=== PATIENT | male | born 1965 | race Caucasian/White ===

== ENCOUNTER 2017-09-07 10:01 | Day surgery (SDC) | payer OTHER ==
[~2017-09-07 10:01] MED LIST: LIDOCAINE 2% MDV 20 ML VIAL As Ordered; PROPOFOL 200 MG/20 ML VIAL As Ordered
[2017-09-07] MEDS: NS 1,000 ML IV ×2 (10:15)
[2017-09-07] MEDS ORDERED: PROPOFOL 200 MG/20 ML VIAL As Ordered ×2 (11:30)
== END 2017-09-07 12:27 | disposition home or self-care (01) ==
LOC: M OPP 10:01
DX: Z12.11 Encounter for screening for malignant neoplasm of colon (principal); K64.2 Third degree hemorrhoids; R10.13 Epigastric pain; K21.9 Gastro-esophageal reflux disease without esophagitis; I10 Essential (primary) hypertension; F41.9 Anxiety disorder, unspecified; R51 Headache; R35.0 Frequency of micturition; Z79.899 Other long term (current) drug therapy; F17.210 Nicotine dependence, cigarettes, uncomplicated
CPT/HCPCS: 45378; G0121

== ENCOUNTER 2019-10-13 16:21 | Emergency (ER) | payer OTHER ==
[~2019-10-13] VITALS: Ht 185.4 cm; Wt 75.0 kg
[~2019-10-13 16:21] MED LIST changes: +AMIT10TA PO; +AMLO10TA5 PO; -LIDOCAINE 2% MDV 20 ML VIAL As Ordered; +LISI10TA4 PO; +MULTTAB22 PO; +OMEP1CAP73 PO; -PROPOFOL 200 MG/20 ML VIAL As Ordered
[2019-10-13] MEDS ORDERED: NAPR-885 PO (16:27)
[2019-10-13] MEDS ORDERED: NS 500 ML IV ONE (17:30)
[2019-10-13] MEDS ORDERED: MORPHINE 4 MG/ML 1ML VIAL/SYRINGE (J2270) IV ONE ×4 (17:30→22:15)
[2019-10-13] MEDS ORDERED: ONDANSETRON 4MG/2ML VIAL (J2405) IV ONE (17:30)
--- NOTE | 2019-10-13 17:56 | REP ---
Clinical: Radiculopathy and right sided sciatica. Technique: AP, lateral, bilateral oblique and coned-down views of the lumbosacral spine. Findings: Alignment and lordosis maintained. No acute fracture / compression injury or subluxation. Endplate sclerosis with minimal disc space narrowing and hypertrophic facet changes noted at L4-5 and L5-S1. Impression: Mild/early moderate degenerative changes at L4-5 and L5-S1. Electronically Signed by Colton Ortega MD 10/13/2019 05:47 P
[2019-10-13 17:59] LABS: BASO % 0.2 % (0.0-1.0); EOS # 0.1 10^3/uL (0.0-0.5); EOS % 0.5 % (0.0-3.0); HEMATOCRIT 44.2 % (42.0-52.0); HEMOGLOBIN 14.9 g/dl (13.5-17.5); LYMPH # 1.8 10^3/uL (1.5-5.0); LYMPH % 13.1 % (24.0-44.0); MEAN CORPUSCULAR HEMOGLOBIN 30.2 pg (27.0-33.0); MEAN CORPUSCULAR HGB CONC 33.7 g/dl (32.0-36.5); MEAN CORPUSCULAR VOLUME 89.5 fl (80.0-96.0); MONO # 0.9 10^3/uL (0.0-0.8); MONO % 6.4 % (0.0-5.0); NEUTROPHILS # 10.8 10^3/uL (1.5-8.5); NEUTROPHILS % 79.6 % (36.0-66.0); PLATELET COUNT, AUTOMATED 310 10^3/uL (150-450); RED BLOOD COUNT 4.94 10^6/uL (4.30-6.10); WHITE BLOOD COUNT 13.5 10^3/uL (4.0-10.0)
[2019-10-13 18:09] LABS: INR 0.96; PROTHROMBIN TIME 12.5 SECONDS (11.8-14.0)
[2019-10-13 18:24] LABS: ALBUMIN 4.4 GM/DL (3.2-5.2); BILIRUBIN,DIRECT 0.1 MG/DL (0.0-0.2); BILIRUBIN,TOTAL 0.5 MG/DL (0.2-1.0); TOTAL PROTEIN 7.5 GM/DL (6.4-8.2)
[2019-10-14] MEDS ORDERED: KETOROLAC 30 MG/ML VIAL (J1885) IV ONE
[2019-10-14] MEDS ORDERED: traMADol 50 MG TAB (BULK 4 TAB ED) PO ONE (00:45)
[2019-10-14] MEDS ORDERED: TRAM-533 PO (00:50)
[2019-10-14] MEDS ORDERED: PRED20TA PO (00:50)
[2019-10-14 00:57] VITALS: BP 172/82
[2019-10-14] MEDS ORDERED: dexameTHASONE 20 MG/5 ML VIAL (J1100) IV ONE (01:00)
--- NOTE | 2019-10-14 19:30 | ED PDOC ---
Post-Departure Follow-Up dr yang faxed formal report of mri ls spine for fu Dwight Dorantes MD Oct 14, 2019 19:30
--- NOTE | 2019-10-15 08:58 | REPVR ---
PROCEDURE INFORMATION: Exam: MR Lumbar Spine Without Contrast. Exam date and time: 10/13/2019 8:53 PM Age: 54 years old Clinical indication: Pain; Lumbago with sciatica; Right; Additional info: Back pain right side, numb right leg, decreased reflexes TECHNIQUE: Imaging protocol: Multiplanar magnetic resonance images of the lumbar spine without intravenous contrast. COMPARISON: CR Spine. Lumbosacral, complete 10/13/2019 5:21 PM FINDINGS: Vertebrae: Unremarkable. Spinal cord: Normal signal. No cord compression. L1-L2: No significant disc disease. No significant spinal canal stenosis. No neural foraminal stenosis. L2-L3: There is mild disc bulging. There is a small left paracentral disc protrusion. There is moderate left-sided neuroforaminal narrowing. There is mild right-sided neuroforaminal narrowing. There is facet arthropathy and ligamentum flavum hypertrophy. There is mild spinal canal stenosis. L3-L4: There is moderate disc bulging. Disc bulging extends into both neural foramen causing bilateral neuroforaminal narrowing. There is a small right paracentral disc protrusion. There is moderate bilateral neural foraminal narrowing, right worse than left. There is facet arthropathy and ligamentum flavum hypertrophy. There is moderate spinal canal stenosis. L4-L5: There is minimal retrolisthesis at L4/5. There is degenerative disc disease including disc space narrowing and dessication. There is a moderate disc bulge with a small superimposed central/right paracentral disc herniation. Disc bulging extends into both neural foramen causing moderate bilateral neuroforaminal narrowing, right worse than left. There is facet arthropathy and ligamentum flavum hypertrophy. There is mild/moderate spinal canal stenosis. L5-S1: There is grade 1 anterior spondylolisthesis at L5/S1. There is degenerative disc disease including disc space narrowing and dessication. There is mild disc bulging. There is moderate bilateral neural foraminal narrowing. There is facet arthropathy and ligamentum flavum hypertrophy. There is mild spinal canal stenosis. Soft tissues: Unremarkable. Other findings: There is congenital spinal canal stenosis which is exacerbated by multilevel degenerative changes. IMPRESSION: 1. There is congenital spinal canal stenosis which is exacerbated by multilevel degenerative changes. 2. Multilevel degenerative changes causing variable degrees of spinal canal and neuroforaminal narrowing as described above. Electronically signed by: Tang Fox On 10/15/2019 08:58:33 AM
--- NOTE | 2019-10-18 19:29 | ED PDOC ---
Post-Departure Follow-Up stephanie fletcher and trey faxed formal report of mri ls spine for fu Dwight Bermudez MD Oct 18, 2019 19:29
== END 2019-10-14 01:09 | disposition home or self-care (01) ==
LOC: M ED 16:21
DX: S39.92XA Unspecified injury of lower back, initial encounter (principal); X50.0XXA Overexertion from strenuous movement or load, initial encounter; Y99.0 Civilian activity done for income or pay; M47.816 Spondylosis without myelopathy or radiculopathy, lumbar region; M51.36 Other intervertebral disc degeneration, lumbar region; K59.00 Constipation, unspecified; I10 Essential (primary) hypertension; E78.5 Hyperlipidemia, unspecified; F41.9 Anxiety disorder, unspecified; F17.210 Nicotine dependence, cigarettes, uncomplicated; Z79.84 Long term (current) use of oral hypoglycemic drugs; Z79.899 Other long term (current) drug therapy
CPT/HCPCS: 36415; 72110; 72148; 80047; 80076; 81001; 83605; 83690; 85025; 85610; 85730; 87040; 93041; 96374; 96375; 96376; 99284; J1100; J1885; J2270; J2405

== ENCOUNTER → 2019-11-23 | Outpatient (REF) | payer OTHER ==
[~2019-11-23] MED LIST changes: +NAPR-885 PO; +PRED20TA PO; +TRAM-533 PO
[2019-11-23 12:57] LABS: PLATELET COUNT, AUTOMATED 333 10^3/uL (150-450)
[2019-11-23 13:07] LABS: INR 0.93; PROTHROMBIN TIME 12.2 SECONDS (11.8-14.0)
[2019-11-23 13:08] LABS: PARTIAL THROMBOPLASTIN TIME 33.3 SECONDS (25.0-38.4)
[2019-11-23 13:17] LABS: COLLAGEN EPINEPHRINE 151 SECONDS (74-162)
== END ==
LOC: M LABDRAW1 09:21
PROVIDERS: ATTEND Physician Assistant
DX: Z01.812 Encounter for preprocedural laboratory examination (principal); M47.817 Spondylosis without myelopathy or radiculopathy, lumbosacral region; M41.26 Other idiopathic scoliosis, lumbar region

== ENCOUNTER → 2020-02-22 | Outpatient (CLI) | payer OTHER | LOC: M LABSMTC 11:04 | PROVIDERS: ATTEND Physical Medicine & Rehabilitation | DX: Z11.59 Encounter for screening for other viral diseases (principal) ==

== ENCOUNTER → 2020-06-08 | Outpatient (CLI) | payer OTHER ==
[~2020-06-08] MED LIST changes: -AMLO10TA5 PO; +AMLO1TAB25 PO
== END ==
LOC: M LABSMTC 11:21
PROVIDERS: ATTEND Physical Medicine & Rehabilitation
DX: Z01.812 Encounter for preprocedural laboratory examination (principal); Z20.828 Contact with and (suspected) exposure to other viral communicable diseases

== ENCOUNTER → 2020-06-27 | Outpatient (CLI) | payer OTHER ==
[2020-06-27 17:21] LABS: PLATELET COUNT, AUTOMATED 361 10^3/uL (150-450)
[2020-06-27 17:26] LABS: INR 0.8; PROTHROMBIN TIME 11.2 SECONDS (12.5-14.3)
[2020-06-27 17:27] LABS: PARTIAL THROMBOPLASTIN TIME 31.5 SECONDS (24.2-38.5)
[2020-06-27 17:38] LABS: COLLAGEN EPINEPHRINE 169 SECONDS (74-162)
[2020-06-27 18:01] LABS: COLLAGEN ADP 84 SECONDS (56-103)
== END ==
LOC: M PLALAB 15:04
PROVIDERS: ATTEND Physician Assistant
DX: M47.817 Spondylosis without myelopathy or radiculopathy, lumbosacral region (principal)

== ENCOUNTER → 2020-08-26 | Outpatient (CLI) | payer OTHER ==
[2020-08-26 11:52] LABS: COLLAGEN EPINEPHRINE 153 SECONDS (74-162)
== END ==
LOC: M PLALAB 10:29
PROVIDERS: ATTEND Physical Medicine & Rehabilitation
DX: Z01.812 Encounter for preprocedural laboratory examination (principal)

== ENCOUNTER → 2020-08-27 | Outpatient (CLI) | payer OTHER | LOC: M LABSMTC 11:18 | PROVIDERS: ATTEND Physical Medicine & Rehabilitation | DX: Z01.812 Encounter for preprocedural laboratory examination (principal); Z20.828 Contact with and (suspected) exposure to other viral communicable diseases ==

== ENCOUNTER 2020-12-02 12:23 | Emergency (ER) | payer OTHER ==
[~2020-12-02] VITALS: Ht 182.9 cm; Wt 94.2 kg
[~2020-12-02 12:23] MED LIST changes: -AMIT10TA PO; +AMIT10TA7 PO; +LISI10TA22 PO; -LISI10TA4 PO
[2020-12-02 12:29] VITALS: BP 131/83
[2020-12-02] MEDS ORDERED: TIZA4TAB4 (12:33)
[2020-12-02] MEDS ORDERED: GABA600T4 (12:33)
[2020-12-02] MEDS ORDERED: BOOSTRIX/ADACEL VACCINE (DIPHTH/PERTUSS/ACELL/TETANUS) 0.5ML SYR IM ONE (13:10)
[2020-12-02] MEDS ORDERED: AUGMENTIN 875 MG TAB PO ONE (13:10)
[2020-12-02] MEDS ORDERED: AUGM875T28 PO (13:13)
== END 2020-12-02 13:30 | disposition home or self-care (01) ==
LOC: M ED 12:23
DX: S41.132A Puncture wound without foreign body of left upper arm, initial encounter (principal); W54.0XXA Bitten by dog, initial encounter; Y92.410 Unspecified street and highway as the place of occurrence of the external cause; Y93.9 Activity, unspecified; Y99.9 Unspecified external cause status; F17.200 Nicotine dependence, unspecified, uncomplicated; Z79.899 Other long term (current) drug therapy

== ENCOUNTER → 2021-12-04 | Outpatient (CLI) | payer OTHER ==
[~2021-12-04] MED LIST changes: +AUGM875T28 PO; +GABA600T4; +TIZA10TA
== END ==
LOC: M RAD 16:10
PROVIDERS: ATTEND Family Medicine
DX: R22.41 Localized swelling, mass and lump, right lower limb (principal); N40.0 Benign prostatic hyperplasia without lower urinary tract symptoms; I70.201 Unspecified atherosclerosis of native arteries of extremities, right leg

== ENCOUNTER 2023-01-14 06:45 | Day surgery (SDC) | payer OTHER ==
[~2023-01-14] VITALS: Ht 182.9 cm; Wt 98.0 kg
[~2023-01-14 06:45] MED LIST changes: +ACET650T61 PO; +EZET10TA21 PO; -GABA600T4; +GABA600T4 PO; +HYDR-3490 PO; -TIZA10TA; +TIZA10TA PO; +VARE1TAB2 PO; +VITMTA PO
[2023-01-14] MEDS ORDERED: LR 1,000 ML IV SCH ×2 (07:25→09:50)
[2023-01-14] MEDS ORDERED: ceFAZolin SOD 2 GM in IV 1 EA IV ONE (07:40)
[2023-01-14] MEDS ORDERED: LIDOCAINE 1% SDV 30ML VIAL As Ordered ONE (08:01)
[2023-01-14] MEDS ORDERED: BUPIVACAINE HCL 0.25% 30ML VIAL As Ordered ONE (08:02)
[2023-01-14] MEDS ORDERED: ROCURONIUM BROMIDE 50MG/5ML VIAL As Ordered ONE ×2 (08:16→09:14)
[2023-01-14] MEDS ORDERED: SUGAMMADEX SODIUM 500 MG/5 ML VIAL (BRIDION) As Ordered ONE ×2 (08:16→09:14)
[2023-01-14] MEDS ORDERED: ONDANSETRON 4MG 2ML VIAL As Ordered ONE (09:14)
[2023-01-14] MEDS ORDERED: propofoL 200 MG/20 ML VIAL As Ordered ONE (09:14)
[2023-01-14] MEDS ORDERED: KETOROLAC 60MG 2ML VIAL As Ordered ONE (09:14)
[2023-01-14] MEDS ORDERED: LIDOCAINE 2% 100MG/5ML SDV (FOR ANES.) As Ordered ONE (09:14)
[2023-01-14] MEDS ORDERED: MIDAZOLAM INJ 2MG/2ML VIAL As Ordered ONE (09:15)
[2023-01-14] MEDS ORDERED: ACETAMINOPHEN 1000MG 100ML IV BAG As Ordered ONE (09:15)
[2023-01-14] MEDS ORDERED: fentaNYL 100 MCG/2 ML INJECTION As Ordered ONE (09:15)
[2023-01-14] MEDS ORDERED: GLYCOPYRROLATE INJ 0.2 MG/ML 2 ML VIAL As Ordered ONE (09:38)
[2023-01-14] MEDS ORDERED: fentaNYL 100 MCG/2 ML INJECTION IV PRN (09:50)
[2023-01-14] MEDS ORDERED: ONDANSETRON 4MG 2ML VIAL IV PRN (09:50)
[2023-01-14] MEDS ORDERED: OXYC1TAB23 PO (10:02)
[2023-01-14] MEDS: oxyCODONE 5MG TAB PO PRN ×2 (10:25→11:06)
[2023-01-14] MEDS: HYDROMORPHONE HCL 0.5 MG/ 0.5 ML SYRINGE IV PRN ×2 (10:26→10:32)
[2023-01-14] MEDS ORDERED: NORCO, ANEXSIA 5/325MG TABLET (HYDROcodone/ACETAMINOPHEN) PO PRN (11:00)
[2023-01-14 12:15] VITALS: BP 142/82
[2023-01-14] MEDS ORDERED: KETOROLAC 30 MG/ML 1ML VIAL IV SCH (16:00)
== END 2023-01-14 12:18 | disposition home or self-care (01) ==
LOC: M SDC 06:45
PROVIDERS: ATTEND Surgery
DX: D17.1 Benign lipomatous neoplasm of skin and subcutaneous tissue of trunk (principal); I10 Essential (primary) hypertension; E78.5 Hyperlipidemia, unspecified; K21.9 Gastro-esophageal reflux disease without esophagitis; G47.33 Obstructive sleep apnea (adult) (pediatric); Z79.899 Other long term (current) drug therapy; F41.9 Anxiety disorder, unspecified; F17.210 Nicotine dependence, cigarettes, uncomplicated; F12.10 Cannabis abuse, uncomplicated
CPT/HCPCS: 11406; 88304; J0131; J0690; J1100; J1170; J1885; J2250; J2405; J3010

== ENCOUNTER → 2023-02-02 | Outpatient (RCR) | payer OTHER ==
[~2023-02-02] MED LIST changes: +OXYC1TAB23 PO
== END ==
LOC: M PT 11:20
PROVIDERS: ATTEND Internal Medicine Hematology
DX: M54.50 Low back pain, unspecified (principal)

== ENCOUNTER 2023-02-28 11:26 | Outpatient (RCR) | payer OTHER | END 2023-03-04 | LOC: M PT 11:26 | PROVIDERS: ATTEND Internal Medicine Hematology | DX: M54.50 Low back pain, unspecified (principal) ==

== ENCOUNTER → 2023-03-02 | Outpatient (CLI) | payer OTHER ==
[2023-03-02 16:54] LABS: CREATININE, URINE 65.4 MG/DL; MALB URINE SIEMENS < 3.0 MG/L; MAU/CREAT RATIO 4.5 MCG/MG (0.0-30.0)
[2023-03-02 16:56] LABS: C REACTIVE PROTEIN QUANTITATIV < 0.40 MG/DL (<1.0)
[2023-03-02 16:57] LABS: ALBUMIN 4.1 G/DL (3.2-5.2); ALKALINE PHOSPHATASE 83 U/L (46-116); ALT/SGPT 14 U/L (7.0-40); AST/SGOT 23 U/L (<34); BILIRUBIN,TOTAL 0.5 MG/DL (0.3-1.2); BLOOD UREA NITROGEN 15 MG/DL (9-23); CALCIUM LEVEL 9.3 MG/DL (8.5-10.1); CARBON DIOXIDE LEVEL 29 MMOL/L (20-31); CHLORIDE LEVEL 106 MMOL/L (98-107); CHOLESTEROL LEVEL 210 MG/DL (<200); CHOLESTEROL RISK RATIO 3.58 (<5); CREATININE FOR GFR 0.84 MG/DL (0.70-1.30); GLOMERULAR FILTRATION RATE > 60.0 (>56); GLUCOSE, FASTING 93 MG/DL (60-100); HDL CHOLESTEROL 58.5 MG/DL (>40); LDL CHOLESTEROL 126.7 MG/DL (<100); NON-HDL-C 151.5 MG/DL; POTASSIUM SERUM 4.4 MMOL/L (3.5-5.1); SODIUM LEVEL 140 MMOL/L (136-145); TOTAL PROTEIN 7.1 G/DL (5.7-8.2); TRIGLYCERIDES LEVEL 124 MG/DL (<150)
[2023-03-02 16:58] LABS: FREE T4 1.29 NG/DL (0.89-1.76); THYROID STIMULATING HORMONE 0.334 uIU/ML (0.55-4.78); VITAMIN B12 LEVEL 396 PG/ML (211-911)
[2023-03-02 16:59] LABS: TOTAL 25(OH) VITAMIN D 26.3 NG/ML (20.0-100.0)
[2023-03-02 17:04] LABS: HEMOGLOBIN 15.8 g/dl (13.5-17.5); MEAN CORPUSCULAR HEMOGLOBIN 30.2 pg (27.0-33.0); MEAN CORPUSCULAR HGB CONC 34.3 g/dl (32.0-36.5); MEAN CORPUSCULAR VOLUME 87.8 fl (80.0-96.0); PLATELET COUNT, AUTOMATED 346 10^3/uL (150-450); RED BLOOD COUNT 5.24 10^6/uL (4.30-6.10); WHITE BLOOD COUNT 7.6 10^3/uL (4.0-10.0)
[2023-03-02 17:39] LABS: HEMOGLOBIN A1c 5.2 % (4.0-6.0)
== END ==
LOC: M PLALAB 12:17
PROVIDERS: ATTEND Internal Medicine Hematology
DX: I10 Essential (primary) hypertension (principal); Z12.5 Encounter for screening for malignant neoplasm of prostate; Z79.899 Other long term (current) drug therapy

== ENCOUNTER 2023-05-17 13:06 | Emergency (ER) | payer OTHER ==
[~2023-05-17] VITALS: Ht 185.4 cm; Wt 95.1 kg
[2023-05-17 14:23] LABS: RSV AMPLIFICATION NEGATIVE (NEGATIVE)
[2023-05-17 15:15] VITALS: O2SAT 98
[2023-05-17] MEDS ORDERED: VENTAER INH (15:34)
[2023-05-17] MEDS ORDERED: MUCI600T31 PO (15:34)
[2023-05-17] MEDS ORDERED: BENZ200C70 PO (15:34)
[2023-05-17 15:50] VITALS: BP 182/94; TEMP 98.2; O2SAT 99
== END 2023-05-17 15:57 | disposition home or self-care (01) ==
LOC: M ED 13:06
DX: U07.1 COVID-19 (principal); F41.9 Anxiety disorder, unspecified; K21.9 Gastro-esophageal reflux disease without esophagitis; I10 Essential (primary) hypertension; G47.33 Obstructive sleep apnea (adult) (pediatric); F17.200 Nicotine dependence, unspecified, uncomplicated; Z79.1 Long term (current) use of non-steroidal anti-inflammatories (NSAID); Z79.891 Long term (current) use of opiate analgesic; Z79.810 Long term (current) use of selective estrogen receptor modulators (SERMs); Z79.811 Long term (current) use of aromatase inhibitors; Z79.899 Other long term (current) drug therapy

== ENCOUNTER → 2023-08-24 | Outpatient (CLI) | payer OTHER ==
[~2023-08-24] MED LIST changes: +BENZ200C70 PO; +MUCI600T31 PO; +VENTAER INH
[2023-08-24 16:02] LABS: HEMATOCRIT 44.9 % (42.0-52.0); HEMOGLOBIN 15.2 g/dl (13.5-17.5); MEAN CORPUSCULAR HEMOGLOBIN 29.4 pg (27.0-33.0); MEAN CORPUSCULAR HGB CONC 33.9 g/dl (32.0-36.5); MEAN CORPUSCULAR VOLUME 86.8 fl (80.0-96.0); PLATELET COUNT, AUTOMATED 329 10^3/uL (150-450); RED BLOOD COUNT 5.17 10^6/uL (4.30-6.10); WHITE BLOOD COUNT 9.9 10^3/uL (4.0-10.0)
[2023-08-24 16:27] LABS: PSA SCREENING 0.82 NG/ML (< 4.00)
[2023-08-24 16:29] LABS: C REACTIVE PROTEIN QUANTITATIV < 0.40 MG/DL (<1.0)
[2023-08-24 16:31] LABS: ALBUMIN 4.1 G/DL (3.2-5.2); ALKALINE PHOSPHATASE 92 U/L (46-116); ALT/SGPT 51 U/L (7.0-40); AST/SGOT 29 U/L (<34); BILIRUBIN,TOTAL 0.5 MG/DL (0.3-1.2); BLOOD UREA NITROGEN 16 MG/DL (9-23); CALCIUM LEVEL 9.9 MG/DL (8.5-10.1); CARBON DIOXIDE LEVEL 26 MMOL/L (20-31); CHLORIDE LEVEL 107 MMOL/L (98-107); CHOLESTEROL LEVEL 154 MG/DL (<200); CHOLESTEROL RISK RATIO 2.72 (<5); CREATININE FOR GFR 0.85 MG/DL (0.70-1.30); GLOMERULAR FILTRATION RATE > 60.0 (>56); GLUCOSE, FASTING 75 MG/DL (60-100); HDL CHOLESTEROL 56.6 MG/DL (>40); LDL CHOLESTEROL 79.8 MG/DL (<100); NON-HDL-C 97.4 MG/DL; POTASSIUM SERUM 4.2 MMOL/L (3.5-5.1); SODIUM LEVEL 138 MMOL/L (136-145); THYROID STIMULATING HORMONE 0.473 uIU/ML (0.55-4.78); TOTAL PROTEIN 7.3 G/DL (5.7-8.2); TRIGLYCERIDES LEVEL 88 MG/DL (<150)
[2023-08-24 16:33] LABS: VITAMIN B12 LEVEL 521 PG/ML (211-911)
[2023-08-24 16:52] LABS: HEMOGLOBIN A1c 5.3 % (4.0-6.0)
== END ==
LOC: M PLALAB 13:57
PROVIDERS: ATTEND Internal Medicine Hematology
DX: M85.851 Other specified disorders of bone density and structure, right thigh (principal); M16.11 Unilateral primary osteoarthritis, right hip; I10 Essential (primary) hypertension; R79.89 Other specified abnormal findings of blood chemistry; Z12.5 Encounter for screening for malignant neoplasm of prostate
CPT/HCPCS: 36415; 73502; 80053; 80061; 82306; 82607; 83036; 84443; 85027; 86140; G0103

== ENCOUNTER → 2023-10-20 | Outpatient (CLI) | payer OTHER | LOC: M PLAIMG 10:58 | PROVIDERS: ATTEND Physician Assistant | DX: M47.816 Spondylosis without myelopathy or radiculopathy, lumbar region (principal); M48.061 Spinal stenosis, lumbar region without neurogenic claudication; M54.41 Lumbago with sciatica, right side ==

== ENCOUNTER → 2023-10-26 | Outpatient (CLI) | payer OTHER | LOC: M PLAIMG 11:21 | PROVIDERS: ATTEND Student in an Organized Health Care Education/Training Program | DX: R06.02 Shortness of breath (principal) ==

== ENCOUNTER → 2023-10-28 | Outpatient (CLI) | payer OTHER ==
[~2023-10-28] MED LIST changes: +ISOVUE-300 61% 100ML VIAL As Ordered ONE; +LIDOCAINE 1% MDV 20ML VIAL As Ordered ONE; +methylPREDNISolone SUSP 40MG/ML 1ML VIAL (DEPO MEDROL) As Ordered ONE
== END ==
LOC: M RAD 14:25
PROVIDERS: ATTEND Physician Assistant
DX: M16.11 Unilateral primary osteoarthritis, right hip (principal); M25.551 Pain in right hip
CPT/HCPCS: 20610; 77002; J0665; J1030; Q9967

== ENCOUNTER → 2023-12-23 | Outpatient (CLI) | payer OTHER ==
[~2023-12-23] MED LIST changes: -ISOVUE-300 61% 100ML VIAL As Ordered ONE; -LIDOCAINE 1% MDV 20ML VIAL As Ordered ONE; -methylPREDNISolone SUSP 40MG/ML 1ML VIAL (DEPO MEDROL) As Ordered ONE
== END ==
LOC: M RAD 15:37
PROVIDERS: ATTEND Nurse Practitioner Family
DX: Z12.2 Encounter for screening for malignant neoplasm of respiratory organs (principal); F17.210 Nicotine dependence, cigarettes, uncomplicated

== ENCOUNTER 2023-12-30 00:25 | Emergency (ER) | payer OTHER ==
[~2023-12-30] VITALS: Ht 185.4 cm; Wt 96.8 kg
[2023-12-30 00:26] VITALS: BP 132/72; TEMP 97.3; O2SAT 100
== END 2023-12-30 02:15 | disposition home or self-care (01) ==
LOC: M ED 00:25
DX: T83.091A Other mechanical complication of indwelling urethral catheter, initial encounter (principal); I10 Essential (primary) hypertension; R33.9 Retention of urine, unspecified; M51.36 Other intervertebral disc degeneration, lumbar region; F17.200 Nicotine dependence, unspecified, uncomplicated; F12.10 Cannabis abuse, uncomplicated; Z79.52 Long term (current) use of systemic steroids; Z79.811 Long term (current) use of aromatase inhibitors; Z79.891 Long term (current) use of opiate analgesic; Z79.899 Other long term (current) drug therapy

== ENCOUNTER → 2024-01-03 | Outpatient (CLI) | payer OTHER ==
[~2024-01-03] MED LIST changes: +ATOR80TA59 PO; +DULO1CAP5 PO; +FINA5TAB2 PO; +FLOM0.4C39 PO; +LISI20TA33 PO; +LORA-622 PO; +NORT10CA2 PO; +OXYB5TAB14 PO
== END ==
LOC: M PAIN 13:00
PROVIDERS: ATTEND Nurse Practitioner Family
DX: M51.16 Intervertebral disc disorders with radiculopathy, lumbar region (principal); G89.29 Other chronic pain; I10 Essential (primary) hypertension; E78.00 Pure hypercholesterolemia, unspecified; F17.210 Nicotine dependence, cigarettes, uncomplicated; Z79.899 Other long term (current) drug therapy

== ENCOUNTER 2024-01-05 00:56 | Emergency (ER) | payer OTHER ==
[~2024-01-05] VITALS: Ht 188 cm; Wt 99.7 kg
[~2024-01-05 00:56] MED LIST changes: -ATOR80TA59 PO; -DULO1CAP5 PO; -FINA5TAB2 PO; -FLOM0.4C39 PO; -LISI20TA33 PO; -LORA-622 PO; -NORT10CA2 PO; -OXYB5TAB14 PO
[2024-01-05 01:46] LABS: HEMATOCRIT 38.9 % (42.0-52.0); HEMOGLOBIN 13.6 g/dl (13.5-17.5); MEAN CORPUSCULAR HEMOGLOBIN 30.3 pg (27.0-33.0); MEAN CORPUSCULAR VOLUME 86.6 fl (80.0-96.0); PLATELET COUNT, AUTOMATED 313 10^3/uL (150-450); RED BLOOD COUNT 4.49 10^6/uL (4.30-6.10); WHITE BLOOD COUNT 16.5 10^3/uL (4.0-10.0)
[2024-01-05 02:25] LABS: ALBUMIN 3.5 G/DL (3.2-5.2); ALKALINE PHOSPHATASE 91 U/L (46-116); ALT/SGPT 35 U/L (7.0-40); AST/SGOT 27 U/L (<34); BILIRUBIN,TOTAL 0.3 MG/DL (0.3-1.2); BLOOD UREA NITROGEN 23 MG/DL (9-23); CALCIUM LEVEL 9.1 MG/DL (8.5-10.1); CARBON DIOXIDE LEVEL 28 MMOL/L (20-31); CHLORIDE LEVEL 101 MMOL/L (98-107); CREATININE FOR GFR 1.25 MG/DL (0.70-1.30); GLOMERULAR FILTRATION RATE > 60.0 (>56); GLUCOSE, FASTING 143 MG/DL (60-100); POTASSIUM SERUM 3.6 MMOL/L (3.5-5.1); SODIUM LEVEL 136 MMOL/L (136-145); TOTAL PROTEIN 6.2 G/DL (5.7-8.2)
[2024-01-05] MEDS ORDERED: ISOVUE-370 76% 100ML VIAL As Ordered ONE (02:32)
[2024-01-05] MEDS ORDERED: FLOM0.4C39 PO (03:28)
[2024-01-05] MEDS ORDERED: NORT10CA2 PO (03:28)
[2024-01-05] MEDS ORDERED: DULO1CAP5 PO (03:28)
[2024-01-05] MEDS ORDERED: ATOR80TA59 PO (03:28)
[2024-01-05] MEDS ORDERED: FINA5TAB2 PO (03:28)
[2024-01-05] MEDS ORDERED: OXYB5TAB14 PO (03:28)
[2024-01-05] MEDS ORDERED: LORA-622 PO (03:28)
[2024-01-05] MEDS ORDERED: LISI20TA33 PO (03:28)
[2024-01-05] MEDS: NS 1,000 ML IV ONE (04:36)
[2024-01-05 06:25] LABS: BASO # 0.1 10^3/uL (0.0-0.2); BASO % 0.3 % (0.0-1.0); EOS # 0.2 10^3/uL (0.0-0.5); EOS % 1.3 % (0.0-3.0); LYMPH # 1.7 10^3/uL (1.5-5.0); LYMPH % 10.4 % (24.0-44.0); MONO # 0.8 10^3/uL (0.0-0.8); MONO % 5.1 % (2.0-8.0); NEUTROPHILS # 13.4 10^3/uL (1.5-8.5); NEUTROPHILS % 82.5 % (36.0-66.0)
[2024-01-05] MEDS: ACETAMINOPHEN TAB 650MG DOSE (2X325MG) PO ONE (06:36)
[2024-01-05 07:00] VITALS: BP 130/65; TEMP 97; O2SAT 94
== END 2024-01-05 08:01 | disposition left against medical advice (07) ==
LOC: M ED 00:56
DX: R55 Syncope and collapse (principal); M51.36 Other intervertebral disc degeneration, lumbar region; M25.78 Osteophyte, vertebrae; M48.02 Spinal stenosis, cervical region; M50.223 Other cervical disc displacement at C6-C7 level; J43.9 Emphysema, unspecified; I10 Essential (primary) hypertension; N40.0 Benign prostatic hyperplasia without lower urinary tract symptoms; E78.5 Hyperlipidemia, unspecified; Z79.52 Long term (current) use of systemic steroids; Z79.891 Long term (current) use of opiate analgesic; Z79.811 Long term (current) use of aromatase inhibitors; Z79.83 Long term (current) use of bisphosphonates; Z79.899 Other long term (current) drug therapy; Z53.9 Procedure and treatment not carried out, unspecified reason
CPT/HCPCS: 70450; 70496; 70498; 72125; 80053; 84484; 85027; 93005; 96360; 96361; 99285; Q9967

== ENCOUNTER → 2024-01-31 | Outpatient (CLI) | payer OTHER ==
[~2024-01-31] MED LIST changes: +ATOR80TA59 PO; +DULO1CAP5 PO; +FINA5TAB2 PO; +FLOM0.4C39 PO; +GABA-282 PO; +LEVO1TAB40 PO; +LISI20TA33 PO; +LORA-622 PO; +MULTTAB61 PO; +MYRB25TA PO; +NORT10CA2 PO; +OMEP40CA4 PO; +OXYB5TAB14 PO; +PROB250C PO; +SYMB80INH INH; +TRAM50TA2 PO
== END ==
LOC: M PAIN 17:00
PROVIDERS: ATTEND Nurse Practitioner Family
DX: M51.16 Intervertebral disc disorders with radiculopathy, lumbar region (principal); I10 Essential (primary) hypertension; E78.2 Mixed hyperlipidemia; F17.200 Nicotine dependence, unspecified, uncomplicated; Z79.02 Long term (current) use of antithrombotics/antiplatelets; Z79.1 Long term (current) use of non-steroidal anti-inflammatories (NSAID); Z79.899 Other long term (current) drug therapy

== ENCOUNTER → 2024-03-12 | Outpatient (CLI) | payer OTHER ==
[2024-03-12 13:31] LABS: BASO # 0.1 10^3/uL (0.0-0.2); BASO % 0.6 % (0.0-1.0); EOS # 0.4 10^3/uL (0.0-0.5); EOS % 5.6 % (0.0-3.0); HEMOGLOBIN 14.4 g/dl (13.5-17.5); LYMPH # 2.4 10^3/uL (1.5-5.0); LYMPH % 31.1 % (24.0-44.0); MEAN CORPUSCULAR HEMOGLOBIN 29.5 pg (27.0-33.0); MEAN CORPUSCULAR HGB CONC 33.5 g/dl (32.0-36.5); MEAN CORPUSCULAR VOLUME 88.1 fl (80.0-96.0); MONO # 0.7 10^3/uL (0.0-0.8); MONO % 8.8 % (2.0-8.0); NEUTROPHILS # 4.2 10^3/uL (1.5-8.5); NEUTROPHILS % 53.6 % (36.0-66.0); PLATELET COUNT, AUTOMATED 378 10^3/uL (150-450); RED BLOOD COUNT 4.88 10^6/uL (4.30-6.10); WHITE BLOOD COUNT 7.7 10^3/uL (4.0-10.0)
[2024-03-12 13:41] LABS: HEMOGLOBIN A1c 5.5 % (4.0-6.0)
[2024-03-12 14:01] LABS: CREATININE, URINE 13.4 MG/DL; MALB URINE SIEMENS < 3.0 MG/L; MAU/CREAT RATIO 22.3 MCG/MG (0.0-30.0)
[2024-03-12 14:03] LABS: C REACTIVE PROTEIN QUANTITATIV < 0.40 MG/DL (<1.0)
[2024-03-12 14:05] LABS: FREE T4 1.21 NG/DL (0.89-1.76)
[2024-03-12 14:06] LABS: THYROID STIMULATING HORMONE 0.497 uIU/ML (0.55-4.78); TOTAL 25(OH) VITAMIN D 41.1 NG/ML (20.0-100.0); VITAMIN B12 LEVEL 550 PG/ML (211-911)
[2024-03-12 14:07] LABS: ALBUMIN 4.1 G/DL (3.2-5.2); ALKALINE PHOSPHATASE 113 U/L (46-116); ALT/SGPT 47 U/L (7.0-40); AST/SGOT 30 U/L (<34); BILIRUBIN,TOTAL 0.4 MG/DL (0.3-1.2); BLOOD UREA NITROGEN 15 MG/DL (9-23); CALCIUM LEVEL 9.7 MG/DL (8.5-10.1); CARBON DIOXIDE LEVEL 30 MMOL/L (20-31); CHLORIDE LEVEL 106 MMOL/L (98-107); CHOLESTEROL LEVEL 142 MG/DL (<200); CHOLESTEROL RISK RATIO 2.64 (<5); CREATININE FOR GFR 0.99 MG/DL (0.70-1.30); GLOMERULAR FILTRATION RATE > 60.0 (>56); GLUCOSE, FASTING 111 MG/DL (60-100); HDL CHOLESTEROL 53.7 MG/DL (>40); LDL CHOLESTEROL 61.7 MG/DL (<100); NON-HDL-C 88.3 MG/DL; POTASSIUM SERUM 4.3 MMOL/L (3.5-5.1); SODIUM LEVEL 139 MMOL/L (136-145); TOTAL PROTEIN 7.4 G/DL (5.7-8.2); TRIGLYCERIDES LEVEL 133 MG/DL (<150)
== END ==
LOC: M PLALAB 09:33
PROVIDERS: ATTEND Internal Medicine Hematology
DX: R79.89 Other specified abnormal findings of blood chemistry (principal); Z79.899 Other long term (current) drug therapy

== ENCOUNTER → 2024-03-30 | Outpatient (REF) | payer OTHER ==
[~2024-03-30] MED LIST changes: +GABA-1490 PO; -GABA600T4 PO
[2024-03-30 18:22] LABS: APPEARANCE, URINE CLEAR (CLEAR); BACTERIA, URINE AUTO NEGATIVE (NEGATIVE); BILIRUBIN, URINE AUTO NEGATIVE (NEGATIVE); BLOOD, URINE BLOOD NEGATIVE (NEGATIVE); COLOR, URINE STRAW (YELLOW); GLUCOSE, URINE (UA) AUTO NEGATIVE (NEGATIVE); KETONE, URINE AUTO NEGATIVE (NEGATIVE); LEUKOCYTE ESTERASE, URINE AUTO NEGATIVE (NEGATIVE); NITRITE, URINE AUTO NEGATIVE (NEGATIVE); PROTEIN, URINE AUTO NEGATIVE (NEGATIVE); RBC, URINE AUTO 1 /HPF (0-3); SPECIFIC GRAVITY URINE AUTO 1.004 (1.002-1.035); SQUAMOUS EPITHELIAL CELL UR AU 0 /HPF (0-6); UROBILINOGEN, URINE AUTO 0.2 mg/dL (0.0-2.0); WBC, URINE AUTO 0 /HPF (0-3)
== END ==
LOC: M SMT 17:04
PROVIDERS: ATTEND Urology
DX: N40.0 Benign prostatic hyperplasia without lower urinary tract symptoms (principal)

== ENCOUNTER → 2024-05-11 | Outpatient (CLI) | payer OTHER | LOC: M PAIN 14:45 | PROVIDERS: ATTEND Nurse Practitioner Family | DX: M51.16 Intervertebral disc disorders with radiculopathy, lumbar region (principal); G89.29 Other chronic pain; I10 Essential (primary) hypertension; E78.00 Pure hypercholesterolemia, unspecified; N40.0 Benign prostatic hyperplasia without lower urinary tract symptoms; Z87.891 Personal history of nicotine dependence; Z79.899 Other long term (current) drug therapy ==

== ENCOUNTER 2024-05-18 11:37 | Emergency (ER) | payer OTHER ==
[~2024-05-18] VITALS: Ht 185.4 cm; Wt 100.8 kg
[2024-05-18] MEDS: ACETAMINOPHEN *IV* 1,000 MG in IV 1 EA IV ONE (14:31)
[2024-05-18] MEDS ORDERED: ISOVUE-370 76% 100ML VIAL As Ordered ONE (14:55)
[2024-05-18 15:23] LABS: ALBUMIN 4.4 G/DL (3.2-5.2); BILIRUBIN,DIRECT 0.1 MG/DL (<0.4); BILIRUBIN,TOTAL 0.4 MG/DL (0.3-1.2); TOTAL PROTEIN 7.9 G/DL (5.7-8.2)
[2024-05-18] MEDS: fentaNYL 100 MCG/2 ML INJECTION IV ONE (17:14)
[2024-05-18 18:32] VITALS: BP 171/87; TEMP 97.9; O2SAT 100
== END 2024-05-18 18:35 | disposition home or self-care (01) ==
LOC: M ED 11:37
DX: S70.01XA Contusion of right hip, initial encounter (principal); W11.XXXA Fall on and from ladder, initial encounter; I10 Essential (primary) hypertension; K21.9 Gastro-esophageal reflux disease without esophagitis; M54.50 Low back pain, unspecified; F12.10 Cannabis abuse, uncomplicated; E78.5 Hyperlipidemia, unspecified; Y92.009 Unspecified place in unspecified non-institutional (private) residence as the place of occurrence of the external cause; Y93.89 Activity, other specified; Y99.9 Unspecified external cause status; Z79.52 Long term (current) use of systemic steroids; Z79.811 Long term (current) use of aromatase inhibitors; Z79.899 Other long term (current) drug therapy
CPT/HCPCS: 70450; 72125; 73521; 73610; 74177; 80047; 80076; 99284; J0131; J3010; Q9967

== ENCOUNTER → 2024-06-06 | Outpatient (CLI) | payer OTHER ==
[~2024-06-06] MED LIST changes: +GABA-1172 PO; -GABA-282 PO
[2024-06-06 13:28] LABS: ALBUMIN 4.3 G/DL (3.2-5.2); ALKALINE PHOSPHATASE 103 U/L (46-116); ALT/SGPT 47 U/L (7.0-40); AST/SGOT 29 U/L (<34); BILIRUBIN,DIRECT 0.2 MG/DL (<0.4); BILIRUBIN,TOTAL 0.7 MG/DL (0.3-1.2); TOTAL PROTEIN 7.8 G/DL (5.7-8.2)
[2024-06-06 13:30] LABS: THYROXINE (T4) 10.4 UG/DL (4.5-10.9)
[2024-06-06 13:31] LABS: FREE THYROXINE INDEX 3.4 % (1.4-3.8); THYROID STIMULATING HORMONE 0.858 uIU/ML (0.55-4.78)
[2024-06-06 13:47] LABS: HEPATITIS B SURFACE ANTIGEN NEGATIVE (NEGATIVE)
[2024-06-06 14:09] LABS: HEPATITIS B CORE ANTIBODY IGM NEGATIVE (NEGATIVE); HEPATITIS C VIRUS ABY INDEX 0.09 INDEX (<0.8)
== END ==
LOC: M PLALAB 11:41
DX: Z01.89 Encounter for other specified special examinations (principal); R93.5 Abnormal findings on diagnostic imaging of other abdominal regions, including retroperitoneum; R29.6 Repeated falls; Z79.899 Other long term (current) drug therapy

== ENCOUNTER → 2024-07-05 | Outpatient (CLI) | payer OTHER ==
[~2024-07-05] MED LIST changes: +ISOVUE-M 300 61% 15ML VIAL As Ordered ONE; +LIDOCAINE 1% SDV 30ML VIAL As Ordered ONE; +dexAMETHasone 10MG/1ML VIAL PRES.FREE As Ordered ONE; +diazePAM 5MG TABLET As Ordered ONE; +oxyCODONE 5MG TAB As Ordered ONE
== END ==
LOC: M PAIN 11:00
PROVIDERS: ATTEND Anesthesiology
DX: M51.16 Intervertebral disc disorders with radiculopathy, lumbar region (principal)
CPT/HCPCS: 62323; J1100; Q9967

== ENCOUNTER → 2024-07-11 | Outpatient (REF) | payer OTHER ==
[~2024-07-11] MED LIST changes: +AMOX500T PO; -ISOVUE-M 300 61% 15ML VIAL As Ordered ONE; -LIDOCAINE 1% SDV 30ML VIAL As Ordered ONE; -dexAMETHasone 10MG/1ML VIAL PRES.FREE As Ordered ONE; -diazePAM 5MG TABLET As Ordered ONE; -oxyCODONE 5MG TAB As Ordered ONE
== END ==
LOC: M SFHCPLAZ 20:37
PROVIDERS: ATTEND Family Medicine
DX: Z53.9 Procedure and treatment not carried out, unspecified reason (principal)

== ENCOUNTER 2024-07-12 12:59 | Emergency (ER) | payer OTHER ==
[~2024-07-12] VITALS: Ht 182.9 cm; Wt 98.2 kg
[~2024-07-12 12:59] MED LIST changes: -AMOX500T PO
[2024-07-12 13:03] VITALS: TEMP 98
[2024-07-12 14:08] LABS: BASO % 0.3 % (0.0-1.0); EOS # 0.2 10^3/uL (0.0-0.5); EOS % 1.6 % (0.0-3.0); HEMATOCRIT 40.9 % (42.0-52.0); HEMOGLOBIN 13.8 g/dl (13.5-17.5); LYMPH # 1.2 10^3/uL (1.5-5.0); LYMPH % 11.9 % (24.0-44.0); MEAN CORPUSCULAR HEMOGLOBIN 29.4 pg (27.0-33.0); MEAN CORPUSCULAR HGB CONC 33.7 g/dl (32.0-36.5); MONO # 0.9 10^3/uL (0.0-0.8); MONO % 9.3 % (2.0-8.0); NEUTROPHILS # 7.6 10^3/uL (1.5-8.5); NEUTROPHILS % 76.2 % (36.0-66.0); PLATELET COUNT, AUTOMATED 304 10^3/uL (150-450)
[2024-07-12 14:23] LABS: ALBUMIN 3.5 G/DL (3.2-5.2); BILIRUBIN,DIRECT 0.1 MG/DL (<0.4); BILIRUBIN,TOTAL 0.4 MG/DL (0.3-1.2); INR 0.87; PARTIAL THROMBOPLASTIN TIME 29.3 SECONDS (24.8-34.2); PROTHROMBIN TIME 12.2 SECONDS (12.5-14.5)
[2024-07-12] MEDS ORDERED: ISOVUE-370 76% 100ML VIAL As Ordered ONE (14:25)
[2024-07-12] MEDS: METOCLOPRAMIDE INJ 10MG/2ML VIAL IV ONE (14:43)
[2024-07-12] MEDS: MORPHINE 4 MG/ML 1ML VIAL IV ONE (14:43)
[2024-07-12] MEDS: cefTRIAXone SOD 1 GM in DEXTROSE 5% (D5W) ADV/MINI-BAG 50 ML IV ONE (16:55)
[2024-07-12 17:15] VITALS: BP 148/80; O2SAT 96
[2024-07-12] MEDS ORDERED: AMOX500T PO (17:31)
== END 2024-07-12 17:42 | disposition home or self-care (01) ==
LOC: M ED 12:59
DX: J18.9 Pneumonia, unspecified organism (principal); K92.2 Gastrointestinal hemorrhage, unspecified; I10 Essential (primary) hypertension; E78.5 Hyperlipidemia, unspecified; K21.9 Gastro-esophageal reflux disease without esophagitis; M54.50 Low back pain, unspecified; G47.33 Obstructive sleep apnea (adult) (pediatric); F41.9 Anxiety disorder, unspecified; N40.0 Benign prostatic hyperplasia without lower urinary tract symptoms; F17.200 Nicotine dependence, unspecified, uncomplicated; F12.10 Cannabis abuse, uncomplicated; Z79.52 Long term (current) use of systemic steroids; Z79.2 Long term (current) use of antibiotics; Z79.02 Long term (current) use of antithrombotics/antiplatelets; Z79.811 Long term (current) use of aromatase inhibitors; Z79.899 Other long term (current) drug therapy
CPT/HCPCS: 71045; 74177; 80047; 80076; 81001; 83690; 85025; 85610; 85730; 96365; 96375; 99284; J0696; J2765; Q9967

== ENCOUNTER → 2024-07-27 | Outpatient (CLI) | payer OTHER ==
[~2024-07-27] MED LIST changes: +AMOX500T PO
== END ==
LOC: M PLAIMG 14:36
PROVIDERS: ATTEND Physician Assistant
DX: R91.8 Other nonspecific abnormal finding of lung field (principal)

== ENCOUNTER → 2024-07-31 | Outpatient (CLI) | payer OTHER | LOC: M WHC 08:52 | DX: R93.5 Abnormal findings on diagnostic imaging of other abdominal regions, including retroperitoneum (principal); R16.0 Hepatomegaly, not elsewhere classified; N28.1 Cyst of kidney, acquired ==

== ENCOUNTER → 2024-08-06 | Outpatient (CLI) | payer OTHER | LOC: M PAIN 15:30 | PROVIDERS: ATTEND Nurse Practitioner Family | DX: M51.16 Intervertebral disc disorders with radiculopathy, lumbar region (principal); G89.29 Other chronic pain; I10 Essential (primary) hypertension; E78.00 Pure hypercholesterolemia, unspecified; N40.0 Benign prostatic hyperplasia without lower urinary tract symptoms; G62.9 Polyneuropathy, unspecified; F17.210 Nicotine dependence, cigarettes, uncomplicated; Z79.899 Other long term (current) drug therapy ==

== ENCOUNTER → 2024-08-07 | Outpatient (CLI) | payer OTHER ==
[2024-08-07 10:15] LABS: INR 0.87; PARTIAL THROMBOPLASTIN TIME 28.1 SECONDS (24.8-34.2); PROTHROMBIN TIME 12.2 SECONDS (12.5-14.5)
[2024-08-07 10:34] LABS: ALBUMIN 3.9 G/DL (3.2-5.2); BILIRUBIN,DIRECT 0.2 MG/DL (<0.4); BILIRUBIN,TOTAL 0.4 MG/DL (0.3-1.2); TOTAL PROTEIN 7.8 G/DL (5.7-8.2)
== END ==
LOC: M LAB 09:25
DX: F39 Unspecified mood [affective] disorder (principal); R93.5 Abnormal findings on diagnostic imaging of other abdominal regions, including retroperitoneum; K76.89 Other specified diseases of liver

== ENCOUNTER → 2024-08-10 | Outpatient (REF) | payer OTHER ==
[2024-08-10 18:57] LABS: APPEARANCE, URINE CLEAR (CLEAR); BACTERIA, URINE AUTO NEGATIVE (NEGATIVE); BILIRUBIN, URINE AUTO NEGATIVE (NEGATIVE); BLOOD, URINE BLOOD NEGATIVE (NEGATIVE); COLOR, URINE STRAW (YELLOW); GLUCOSE, URINE (UA) AUTO NEGATIVE (NEGATIVE); KETONE, URINE AUTO NEGATIVE (NEGATIVE); LEUKOCYTE ESTERASE, URINE AUTO TRACE (NEGATIVE); NITRITE, URINE AUTO NEGATIVE (NEGATIVE); PROTEIN, URINE AUTO NEGATIVE (NEGATIVE); RBC, URINE AUTO 0 /HPF (0-3); SPECIFIC GRAVITY URINE AUTO 1.005 (1.002-1.035); SQUAMOUS EPITHELIAL CELL UR AU 0 /HPF (0-6); UROBILINOGEN, URINE AUTO 0.2 mg/dL (0.0-2.0); WBC, URINE AUTO 0 /HPF (0-3)
== END ==
LOC: M SMT 17:16
PROVIDERS: ATTEND Urology
DX: R30.0 Dysuria (principal)

== ENCOUNTER → 2024-09-25 | Outpatient (REF) | payer OTHER | LOC: M SFHCPLAZ 19:03 | DX: R53.82 Chronic fatigue, unspecified (principal) ==

== ENCOUNTER → 2024-09-29 | Outpatient (REF) | payer OTHER | LOC: M SFHCPLAZ 15:28 | DX: R25.2 Cramp and spasm (principal) ==

== ENCOUNTER → 2024-11-05 | Outpatient (CLI) | payer MEDICARE, OTHER ==
[2024-11-05 17:58] LABS: BLOOD UREA NITROGEN 19 MG/DL (9-23); CALCIUM LEVEL 9.5 MG/DL (8.3-10.6); CARBON DIOXIDE LEVEL 32 MMOL/L (20-31); CHLORIDE LEVEL 100 MMOL/L (98-107); CREATININE FOR GFR 1.05 MG/DL (0.70-1.30); GLOMERULAR FILTRATION RATE > 60.0 (>49); GLUCOSE, FASTING 100 MG/DL (74-106); MAGNESIUM LEVEL 2.1 MG/DL (1.8-2.4); PHOSPHORUS LEVEL 3.3 MG/DL (2.4-5.1); POTASSIUM SERUM 4.2 MMOL/L (3.5-5.1); SODIUM LEVEL 142 MMOL/L (136-145)
[2024-11-05 18:02] LABS: FOLATE > 24.0 NG/ML (>5.4); TOTAL 25(OH) VITAMIN D 45.8 NG/ML (20.0-100.0); VITAMIN B12 LEVEL 434 PG/ML (211-911)
== END ==
LOC: M PLALAB 14:49
DX: R53.82 Chronic fatigue, unspecified (principal); R25.2 Cramp and spasm

== ENCOUNTER → 2024-11-09 | Outpatient (CLI) | payer MEDICARE, OTHER | LOC: M SLEEP HO 10:59 | DX: R53.82 Chronic fatigue, unspecified (principal) ==

== ENCOUNTER → 2024-12-31 | Outpatient (CLI) | payer MEDICARE, OTHER ==
[~2024-12-31] MED LIST changes: -FLOM0.4C39 PO; +TAMS-18 PO
== END ==
LOC: M PLAIMG 07:02
DX: M51.16 Intervertebral disc disorders with radiculopathy, lumbar region (principal); M51.26 Other intervertebral disc displacement, lumbar region

== ENCOUNTER → 2025-05-08 | Outpatient (CLI) | payer OTHER, MEDICARE ==
[~2025-05-08] MED LIST changes: +AMIT10TA11 PO; -AMIT10TA7 PO; +LORA-1164 PO; -LORA-622 PO
== END ==
LOC: M PLALAB 10:21
PROVIDERS: ATTEND Urology
DX: Z12.5 Encounter for screening for malignant neoplasm of prostate (principal)
CPT/HCPCS: 36415; G0103

== ENCOUNTER → 2025-06-03 | Outpatient (CLI) | payer MEDICARE ==
[~2025-06-03] MED LIST changes: -EZET10TA21 PO; +EZET10TA57 PO
== END ==
LOC: M RAD 13:53
PROVIDERS: ATTEND Neurological Surgery
DX: M48.02 Spinal stenosis, cervical region (principal)

== ENCOUNTER 2025-06-24 02:30 | Observation (INO) | payer MEDICARE ==
[~2025-06-24] VITALS: Ht 185.4 cm; Wt 109.1 kg
[2025-06-24 03:15] LABS: BASO # 0.0 10^3/uL (0.0-0.2); BASO % 0.2 % (0.0-1.0); EOS # 0.1 10^3/uL (0.0-0.5); EOS % 0.7 % (0.0-3.0); LYMPH # 2.2 10^3/uL (1.5-5.0); LYMPH % 12.8 % (24.0-44.0); MONO # 0.8 10^3/uL (0.0-0.8); MONO % 4.5 % (2.0-8.0); NEUTROPHILS # 14.2 10^3/uL (1.5-8.5); NEUTROPHILS % 81.3 % (36.0-66.0); PLATELET COUNT, AUTOMATED 329 10^3/uL (150-450)
[2025-06-24 03:27] LABS: INR 0.95
[2025-06-24 03:41] LABS: CALCIUM LEVEL 9.3 MG/DL (8.3-10.6); CARBON DIOXIDE LEVEL 25.0 MMOL/L (20-31); CHLORIDE LEVEL 100.0 MMOL/L (98-107); CK-MB VALUE MASS 2.1 NG/ML (<3.6); CREATININE FOR GFR 1.2 MG/DL (0.70-1.30); GLOMERULAR FILTRATION RATE 68.8 (>49); POTASSIUM SERUM 3.6 MMOL/L (3.5-5.1); SODIUM LEVEL 137.0 MMOL/L (136-145)
[2025-06-24 03:42] LABS: CPK CREATINE PHOSPHOKINASE 123.0 U/L (46-171); MB/CK RELATIVE INDEX 1.7 (< OR =4)
[2025-06-24] MEDS: ACETAMINOPHEN *IV* 1,000 MG in IV 1 EA IV ONE (04:09)
[2025-06-24] MEDS: GABAPENTIN 300 MG CAP PO ONE (04:27)
[2025-06-24 05:19] LABS: ALT/SGPT 33.0 U/L (7.0-40); AST/SGOT 22.0 U/L (<34); MAGNESIUM LEVEL 2.0 MG/DL (1.8-2.4); PHOSPHORUS LEVEL 3.3 MG/DL (2.4-5.1)
[2025-06-24] MEDS ORDERED: NS (Normal Saline) 0.9% 1,000 ML IV SCH (05:30)
[2025-06-24] MEDS: NS (Normal Saline) 0.9% 1,000 ML IV SCH (06:20)
[2025-06-24] MEDS: MORPHINE 2 MG/ML 1 ML VIAL IV ONE (06:23)
[2025-06-24] MEDS ORDERED: SYMB80INH INH (08:03)
[2025-06-24] MEDS ORDERED: INCR1INH INH (08:03)
[2025-06-24] MEDS ORDERED: PRAZ1CAP PO (08:03)
[2025-06-24] MEDS ORDERED: PROB250C PO (08:03)
[2025-06-24] MEDS ORDERED: DULO60CA35 PO (08:03)
[2025-06-24] MEDS ORDERED: HOME MED LIST COMPLETE! XX SCH (08:05)
[2025-06-24] MEDS: cefTRIAXone SOD 1 GM in DEXTROSE 5% (D5W) ADV/MINI-BAG 50 ML IV SCH (08:22)
[2025-06-24] MEDS: DOXYCYCLINE HYCLATE 100 MG TABLET PO SCH (08:22)
[2025-06-24] MEDS: PANTOPRAZOLE 40MG VIAL IV SCH (08:22)
[2025-06-24] MEDS: HEPARIN SOD 5000 UNITS/ML 1 ML VIAL/SYRINGE SQ SCH (08:23)
[2025-06-24 08:34] LABS: CK-MB VALUE MASS 1.9 NG/ML (<3.6)
[2025-06-24 08:35] LABS: CPK CREATINE PHOSPHOKINASE 111 U/L (46-171); MB/CK RELATIVE INDEX 1.71 (< OR =4)
[2025-06-24] MEDS ORDERED: ALBUTEROL 90 MCG/ACT 8 GM HFA INHALER INH PRN (11:25)
[2025-06-24] MEDS: SYMBICORT 80/4.5MCG INHALER 6GM INH SCH (12:22)
[2025-06-24] MEDS: amLODIPine 10 MG TAB PO SCH (12:25)
[2025-06-24] MEDS: GABAPENTIN 300 MG CAP PO SCH (12:25)
[2025-06-24] MEDS: hydroCHLOROthiazide 25 MG TAB PO SCH (12:25)
[2025-06-24] MEDS: MULTIVITAMINS/MINERALS THERAP 1 TAB PO SCH (12:25)
[2025-06-24] MEDS: TAMSULOSIN 0.4 MG CAP PO SCH (12:25)
[2025-06-24] MEDS: FINASTERIDE 5 MG TAB PO SCH (12:25)
[2025-06-24] MEDS: ACETAMINOPHEN 325 MG TAB PO PRN (12:26)
[2025-06-24] MEDS: PRAZOSIN 1 MG CAP PO SCH (22:31)
[2025-06-24] MEDS: ATORVASTATIN 20 MG TAB PO SCH (22:31)
[2025-06-24] MEDS: PERCOCET 5MG/325MG TAB PO ONE (22:32)
[2025-06-24] MEDS: NORTRIPTYLINE 10 MG CAP PO SCH (22:40)
[2025-06-25 06:15] VITALS: TEMP 97.9
[2025-06-25 06:33] LABS: PLATELET COUNT, AUTOMATED 333 10^3/uL (150-450)
[2025-06-25 07:01] LABS: ALT/SGPT 29.0 U/L (7.0-40); AST/SGOT 24.0 U/L (<34); CALCIUM LEVEL 9.1 MG/DL (8.3-10.6); CARBON DIOXIDE LEVEL 28.0 MMOL/L (20-31); CHLORIDE LEVEL 103.0 MMOL/L (98-107); CREATININE FOR GFR 1.08 MG/DL (0.70-1.30); GLOMERULAR FILTRATION RATE 78.1 (>49); POTASSIUM SERUM 4.0 MMOL/L (3.5-5.1); SODIUM LEVEL 142.0 MMOL/L (136-145)
[2025-06-25] MEDS: OMEPRAZOLE 20MG CAP PO SCH (08:14)
[2025-06-25 10:36] VITALS: BP 144/65
[2025-06-25] MEDS: EZETIMIBE 10 MG TABLET PO SCH (10:36)
[2025-06-25] MEDS: FLUZONE VACCINE TRI PF(25-26) 0.5ML SYRINGE IM.IMMUN ONE (10:36)
[2025-06-25] MEDS: TIOTROPIUM BROM 2.5MCG/ACTUATION 4GM INH INH SCH (11:11)
[2025-06-25 12:30] VITALS: BP 138/84; O2SAT 93
== END 2025-06-25 15:37 | disposition home or self-care (01) ==
LOC: M ED 02:30 → INTOOBSV 05:26 → M ED INP 05:26
PROVIDERS: ADMIT Student in an Organized Health Care Education/Training Program; ATTEND Student in an Organized Health Care Education/Training Program
DX: R55 Syncope and collapse (principal); I10 Essential (primary) hypertension; E78.5 Hyperlipidemia, unspecified; J44.9 Chronic obstructive pulmonary disease, unspecified; K21.9 Gastro-esophageal reflux disease without esophagitis; N40.0 Benign prostatic hyperplasia without lower urinary tract symptoms; M48.00 Spinal stenosis, site unspecified; M50.30 Other cervical disc degeneration, unspecified cervical region; M51.369 Other intervertebral disc degeneration, lumbar region without mention of lumbar back pain or lower extremity pain; Z79.2 Long term (current) use of antibiotics; Z79.899 Other long term (current) drug therapy; F17.210 Nicotine dependence, cigarettes, uncomplicated; F12.10 Cannabis abuse, uncomplicated; Z23 Encounter for immunization
CPT/HCPCS: 36415; 70450; 71045; 72125; 72128; 72131; 80047; 80048; 80053; 80076; 82077; 82140; 82550; 82553; 83605; 83735; 83880; 84100; 84145; 84484; 85025; 85027; 85379; 85610; 85730; 87040; 87486; 87581; 87633; 87798; 90656; 93005; 93041; 93306; 93880; 94640; 94760; 95819; 96361; 96365; 96372; 96375; 97116; 97161; 97165; 99285; G0008; G0378; J0131; J0696; J2470

== ENCOUNTER → 2025-07-15 | Outpatient (CLI) | payer MEDICARE ==
[~2025-07-15] MED LIST changes: +DULO60CA35 PO; +INCR1INH INH; +PRAZ1CAP PO
[2025-07-15 13:27] LABS: CREATININE FOR GFR 0.95 MG/DL (0.70-1.30); GLOMERULAR FILTRATION RATE > 90.0 (>49)
== END ==
LOC: M LAB 11:34
PROVIDERS: ATTEND Otolaryngology
DX: M48.02 Spinal stenosis, cervical region (principal)

== ENCOUNTER → 2025-07-19 | Outpatient (CLI) | payer MEDICARE ==
[~2025-07-19] MED LIST changes: +ISOVUE-370 76% 100 ML VIAL ONE
== END ==
LOC: M PLAIMG 08:57
PROVIDERS: ATTEND Otolaryngology
DX: M48.02 Spinal stenosis, cervical region (principal); M47.812 Spondylosis without myelopathy or radiculopathy, cervical region
CPT/HCPCS: 70491; Q9967

== ENCOUNTER → 2025-08-13 | Outpatient (CLI) | payer MEDICARE ==
[~2025-08-13] MED LIST changes: -ISOVUE-370 76% 100 ML VIAL ONE
== END ==
LOC: M CARPUL 10:55
DX: I49.3 Ventricular premature depolarization (principal); R94.31 Abnormal electrocardiogram [ECG] [EKG]; R55 Syncope and collapse; Z79.899 Other long term (current) drug therapy
CPT/HCPCS: 78452; 93017; A9500; J2785

== ENCOUNTER → 2025-08-15 | Outpatient (CLI) | payer MEDICARE | LOC: M RAD 06:55 | DX: R55 Syncope and collapse (principal); Z53.9 Procedure and treatment not carried out, unspecified reason ==

== ENCOUNTER → 2025-09-03 | Outpatient (REF) | payer MEDICARE ==
[~2025-09-03] MED LIST changes: +TAMS1CAP17 PO
[2025-09-04 11:30] LABS: APPEARANCE, URINE CLEAR (CLEAR); BACTERIA, URINE AUTO NEGATIVE (NEGATIVE); BILIRUBIN, URINE AUTO NEGATIVE (NEGATIVE); BLOOD, URINE BLOOD NEGATIVE (NEGATIVE); GLUCOSE, URINE (UA) AUTO NEGATIVE (NEGATIVE); KETONE, URINE AUTO NEGATIVE (NEGATIVE); LEUKOCYTE ESTERASE, URINE AUTO NEGATIVE (NEGATIVE); MUCUS, URINE SMALL (NEGATIVE); NITRITE, URINE AUTO NEGATIVE (NEGATIVE); PROTEIN, URINE AUTO NEGATIVE (NEGATIVE); RBC, URINE AUTO 1 /HPF (0-3); SPECIFIC GRAVITY URINE AUTO 1.013 (1.002-1.035); SQUAMOUS EPITHELIAL CELL UR AU 0 /HPF (0-6); UROBILINOGEN, URINE AUTO 0.2 mg/dL (0.0-2.0); WBC, URINE AUTO 0 /HPF (0-3)
== END ==
LOC: M SFHCPLAZ 10:21
PROVIDERS: ATTEND Student in an Organized Health Care Education/Training Program
DX: Z01.818 Encounter for other preprocedural examination (principal)

== ENCOUNTER → 2025-09-04 | Outpatient (CLI) | payer MEDICARE, OTHER ==
[2025-09-04 13:38] LABS: PLATELET COUNT, AUTOMATED 313 10^3/uL (150-450)
[2025-09-04 14:05] LABS: INR 0.89
[2025-09-04 14:16] LABS: ALT/SGPT 33.0 U/L (7.0-40); AST/SGOT 24.0 U/L (<34); CALCIUM LEVEL 9.4 MG/DL (8.3-10.6); CARBON DIOXIDE LEVEL 30.0 MMOL/L (20-31); CHLORIDE LEVEL 107.0 MMOL/L (98-107); CREATININE FOR GFR 0.98 MG/DL (0.70-1.30); GLOMERULAR FILTRATION RATE 87.7 (>49); POTASSIUM SERUM 4.3 MMOL/L (3.5-5.1); SODIUM LEVEL 142.0 MMOL/L (136-145)
== END ==
LOC: M PLALAB 10:39
PROVIDERS: ATTEND Student in an Organized Health Care Education/Training Program
DX: Z01.818 Encounter for other preprocedural examination (principal); M48.02 Spinal stenosis, cervical region